=== PATIENT | female | born 1985 | race Caucasian/White ===

== ENCOUNTER → 2018-11-15 | Outpatient (CLI) | payer BC ==
[~2018-11-15] MED LIST: LORA-407; PREN1TAB49 PO
== END | disposition home or self-care (01) ==
LOC: U/S 07:57
PROVIDERS: ATTEND Obstetrics & Gynecology
DX: R10.2 Pelvic and perineal pain (principal)
CPT/HCPCS: 76830; 76856

== ENCOUNTER → 2019-01-04 | Outpatient (CLI) | payer BC | END | disposition home or self-care (01) | LOC: LAB 07:01 | PROVIDERS: ATTEND Obstetrics & Gynecology | DX: Z01.818 Encounter for other preprocedural examination (principal) | CPT/HCPCS: 71046; 80053; 80061; 81001; 84703; 85025; 85610; 85730; 86900; 86901; 87086 ==

== ENCOUNTER 2019-01-17 08:30 | Day surgery (SDC) | payer BC ==
[~2019-01-17] VITALS: Ht 165.1 cm; Wt 69.9 kg
[2019-01-17] VITALS (15 sets, daily range): BP systolic 100–123; BP diastolic 59–80; PULSE 69–96; RESP 14–24; Ht 165.1 cm; Wt 69.9 kg
--- NOTE | 2019-01-17 07:14 | PREOPHP ---
DATE OF ADMISSION: 01/17/2019 HISTORY OF PRESENT ILLNESS: This is a 33-year-old female, 2, para 2. Patient had been refer red to me for a tubal ligation by her clinic. She had an IUD for a year that was giving her no probl ems, but she would like to have permanent sterilization. PAST MEDICAL HISTORY: Breast biopsy which was benign. ALLERGIES: SHE IS NOT ALLERGIC TO ANY MEDICATIONS. MEDICATIONS: She is only taking vitamins. FAMILY HISTORY: Noncontributory. PHYSICAL EXAMINATION: VITAL SIGNS: The patient's vital signs are stable. The review of systems is noncontributory. The b lood pressure is 100/70, pulse is 80, she is afebrile. She weighs 162. She is 5'6". HEAD AND NECK: Normal. BREASTS: With fibrocystic breast, no masses. HEART: Normal sinus rhythm. LUNGS: Clear. BACK: Normal. ABDOMEN: Soft, nontender, no masses. PELVIC: External genitalia is normal. The IUD was removed in the office. The uterus was retroverte d flex with some fibroids. Adnexa are nonpalpable. RECTAL AND EXTREMITIES: Normal. DIAGNOSES: Early fibroid uterus, multiparity, voluntary sterilization. PLAN: She is undergoing a pelviscopic bilateral salpingectomy. The advice was given to either remov e the tubes or do a partial salpingectomy and after explaining the pros and cons of both procedures s he decided to go ahead with salpingectomy since we wanted to prevent ovarian cancer and not have to c ome back with an ectopic and she did not want to have her tubes re-done ever again since sh e is adamant about having no more children. The patient was advised of the possible risks and possib le complications of the procedure with her alternatives and options. Written information was provide d. She had no more questions and agreed to go ahead with the procedure with full understanding and n o more questions. Dictated By: CLAUDIA SANTIAGO/NTS Conf#: [id number] DID#: [id number]
[2019-01-17] MEDS ORDERED: LACTATED RINGER'S 1,000 ML IV SCH (09:30)
[2019-01-17] MEDS ORDERED: CEFAZOLIN 2 GM/50 ML (PMX) 50 ML IVPB ONE (10:00)
--- NOTE | 2019-01-17 10:29 | HPN ---
Date/Time of Note Date/Time of Note DATE: 01/17/19 TIME: 10:28 Interval H&P Admission Note Pt. seen H&P reviewed: No system changes CLAUDIA LEVIN MD Jan 17, 2019 10:29
--- NOTE | 2019-01-17 10:45 | PREAC ---
Date/Time of Note Date/Time of Note DATE: 01/17/19 TIME: 10:43 Anesthesia Eval and Record Evaluation Time Pre-Procedure Interview DATE: 01/17/19 TIME: 10:43 Age 34 Sex female NPO: 8 hrs Preoperative diagnosis desires sterility Planned procedure lap salpigectomy Past Medical History Past Medical History: None Surgery & Anesthesia Issues No known issue Meds Anticoagulation: No Beta Julio within 24 hr: No Reason Beta Julio not given: Bradycarida Discontinued Reported Medications Vits W-Ca,Fe,Fa(<1MG) () 1 Tab Tablet, 1 TAB PO DAILY 06/04/11 Loratadine (Claritin) 10 Mg Tablet 04/19/10 Current Medications Lactated Ringer's 1,000 ml @ 125 mls/hr Q8H IV Last administered on 01/17/19at 09:40; Admin Dose 125 MLS/HR; Start 01/17/19 at 09:30 Meds reviewed: Yes Allergies Coded Allergies: No Known Allergies (Verified Allergy, Mild, 01/17/19) Allergies Reviewed: Yes Labs/Studies Labs Reviewed: Reviewed by anesthesiologist test: Negative Pre-procedure Exam Last vitals Vital Signs Date Temp Pulse Resp B/P (MAP) Pulse Ox O2 O2 Flow FiO2 Time Delivery Rate 01/17/19 98.3 69 16 114/79 99 09:49 (91) Airway: Adequate mouth opening Mallampati: Mallampati II Teeth: Normal Lung: Normal Heart: Normal ASA Physical Status ASA physical status: 1 Emergency: None Pre-operative Attestations Prior to commencing anesthesia and surgery, the patient was re-evaluated, there was verification of: *The patient's identity *The results of appropriate recent lab work and preoperative vital signs *The above evaluation not changing prior to induction *Anesthetic plan, risk benefits, alternative and complications discussed with patient/family; questions answered; patient/family understands, accepts and wishes to proceed. MARGO UGARTE MD Jan 17, 2019 10:45
[2019-01-17] MEDS ORDERED: LABETALOL HCL 20MG INJ IV PRN (11:00)
[2019-01-17] MEDS ORDERED: ROCURONIUM 50 MG INJ ONE (11:00)
[2019-01-17] MEDS ORDERED: PROPOFOL 20 ML ONE (11:00)
[2019-01-17] MEDS ORDERED: ONDANSETRON 4 MG INJ IV PRN (11:00)
[2019-01-17] MEDS ORDERED: MEPERIDINE 25 MG INJ IV PRN (11:00)
[2019-01-17] MEDS ORDERED: MIDAZOLAM 1 MG/ML 2 ML INJ IV PRN (11:00)
[2019-01-17] MEDS ORDERED: HYDROmorphONE 1 MG/5 ML IV SYRINGE IV PRN (11:00)
[2019-01-17] MEDS ORDERED: EPHEDrine 25 MG/5 ML SYG IV PRN (11:00)
[2019-01-17] MEDS ORDERED: METOCLOPRAMIDE 10 MG INJ IV PRN (11:00)
[2019-01-17] MEDS ORDERED: OXYCODONE/ACETAMINOPHEN (5/325) TAB PO PRN (11:00)
[2019-01-17] MEDS ORDERED: hydrALAzine 20 MG INJ IV PRN (11:00)
[2019-01-17] MEDS ORDERED: MIDAZOLAM 1 MG/ML 2 ML INJ ONE (11:01)
[2019-01-17] MEDS ORDERED: LIDOCAINE 1% (MDV) 20 ML INJ ONE (11:01)
[2019-01-17] MEDS ORDERED: FENTAnyl 50 MCG/ML VIAL ONE (11:01)
[2019-01-17] MEDS ORDERED: BUPIVACAINE 0.5%/EPI (SDV) 10 ML INJ ONE (11:14)
[2019-01-17] MEDS ORDERED: DEXAMETHASONE 4 MG/ML 5 ML INJ ONE (11:47)
[2019-01-17] MEDS ORDERED: OXYTOCIN 10 UNIT INJ ONE (11:48)
[2019-01-17] MEDS ORDERED: SUGAMMADEX SODIUM 200 MG/2 ML VIAL IV ONE (11:48)
--- NOTE | 2019-01-17 12:42 | PD.PPDC ---
INPATIENT PHARMACIST Discharge Instruction Condition [id number] Patient Condition: [id number] Good Diet Ypidf6Dt Diet: Bgtyl0c Resume Regular Diet Activity/Restrictions [id number] Activity: Bhkee1p Normal Activity May Shower Bdadi0Pi Restrictions: Jwqpu5t No Exercising No Lifting No Driving No Sexual Activity Nothing in the Vagina No [place] No Tampons, douche Wound/Drain Care Instructions [id number] Wound/Drain Care Hltyp6g Remove Steri Strips in 1 week Instructions: Wash with soap and water Keep clean and dry Follow-up Follow-up with Physician: 2, Week/Weeks Return to clinic for Oiail7Pe [employer]IP[employer] GUN Instructions: Jzwnh7x Fever greater than 101 Worsening abdominal pain Excessive Vaginal Bleeding More than 2 pads per hour Unable to tolerate diet [id number] Surgical Instructions: Rbhsa3e Incisional Drainage Incisional Redness CLAUDIA LEVIN MD Jan 17, 2019 12:42
--- NOTE | 2019-01-17 12:44 | SIPON ---
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
--- NOTE | 2019-01-17 12:59 | PAC ---
Date/Time of Note Date/Time of Note DATE: 01/17/19 TIME: 12:55 Post-Anesthesia Notes Post-Anesthesia Note Last documented vital signs Vital Signs Date Temp Pulse Resp B/P (MAP) Pulse Ox O2 O2 Flow FiO2 Time Delivery Rate 01/17/19 98.3 69 16 114/79 99 09:49 (91) Activity: WNL Respiratory function: WNL Cardiovascular function: WNL Mental status: Baseline Pain reasonably controlled: Yes Hydration appropriate: Yes Nausea/Vomiting absent: Yes MARGO UGARTE MD Jan 17, 2019 12:59
[2019-01-17] MEDS ORDERED: KETOROLAC 30 MG INJ IV PRN (13:00)
[2019-01-17] MEDS: FENTAnyl 50 MCG/ML VIAL IV PRN ×4 (13:09→13:27)
--- NOTE | 2019-01-17 15:05 | OPR ---
DATE OF OPERATION: 01/17/2019 PROCEDURE: Pelviscopic bilateral salpingectomy. PREOPERATIVE DIAGNOSES: 1. Multiparity. 2. Voluntary sterilization. 3. Fibroid uterus. POSTOPERATIVE DIAGNOSES: 1. Multiparity. 2. Voluntary sterilization. 3. Fibroid uterus. SURGEON: Claudia Brady MD ANESTHESIOLOGIST: Mary Sanchez MD ANESTHESIA: General. COMPLICATIONS: None. DESCRIPTION OF PROCEDURE: The patient was given general anesthesia, placed in the lithotomy position . The abdomen, perineal and vaginal area were prepped and draped. Examination under anesthesia reve aled that the uterus was complete, retroverted with large cervix and bulky uterus with a prolapse gra de II and prolapse grade II on the pelvic area. Uterine instrumentation was used and Mendez catheter was placed in the bladder. The abdomen had been prepped and draped. An incision was made around the inferior edge of the umbilicus of about 2 cm and the abdomen was opened in layers without difficulti es. Abdominal cavity was reached. The CO2 was inflated through the trocar that was placed in with H asson and visualization of the pelvic organs revealed that the uterus was third degree retroverted, h ypertrophic with an early fibroid condition. Both tubes were normal. Both ovaries were normal. Mid line incision suprapubically was done with a 5 mm trocar and another second 5 mm trocar incision was placed right-sided to the patient right to the lateral rectus muscle, 5 cm below the level of the umb ilicus and instrumentation was placed in. The pelvic exam was excellent with early fibroids conditio n. Both tubes and ovaries were normal. Both ovaries were normal. There were no adhesions. It was a clean pelvis. The instrument was used to hold up the tube and the mesosalpinx was exposed. The gy darrius was used to burn and cut the mesosalpinx and the tube. The procedure was done in both sides with out complications. Both tubes were removed through the incisions and sent for pathology. The purpos e of the procedure had seen tubal ligation since the patient does not want to come back for tubal pre gnancy and she would like to have protection for her possible future ovarian cancer. She is adamant about not having any more children in the future. Decision for bilateral salpingectomy was done over the partial salpingectomy. She was conscious about the pros and cons of both procedures and she agr eed to go ahead with this procedure. At this time, the procedure had been done. All the ports were removed and the gas was inflated with the suction. The umbilical incision was closed with an 0 Vicry l for the fascia and 3-0 Monocryl subcuticular for all 3 incisions. Pain control was done with Dara ine solution in all 3 incisions. We used 20 mL all around it. Dermabond was used on top of the 3-0 Monocryl sutures and Steri-Strips. The patient tolerated the procedure well and left the OR awake an d stable. Sponge counts and instrument counts were correct. Intravenous antibiotics were given for prophylaxis. Blood loss was minimal and the urine was clear at the end of the procedure. Dictated By: CLAUDIA SANTIAGO/FRANTZ Conf#: [id number] DID#: [id number]
== END 2019-01-17 14:50 | disposition home or self-care (01) ==
LOC: SDS 08:30
PROVIDERS: ATTEND Obstetrics & Gynecology
DX: Z30.2 Encounter for sterilization (principal); D25.9 Leiomyoma of uterus, unspecified
CPT/HCPCS: 58661; 84703; 88302; J1100; J1885; J2175; J2250; J2405; J2590; J3010; J0690